=== PATIENT | male | born 1995 | race Two or more races ===

== ENCOUNTER 2019-02-09 03:50 | Emergency (ER) | payer MEDICAID ==
[~2019-02-09] VITALS: Ht 165.1 cm; Wt 54.4 kg
[2019-02-09 04:09] VITALS: BP 135/89
== END 2019-02-09 04:55 | disposition left against medical advice (07) ==
LOC: ER 03:58
DX: S01.412A Laceration without foreign body of left cheek and temporomandibular area, initial encounter (principal); Z53.21 Procedure and treatment not carried out due to patient leaving prior to being seen by health care provider; X58.XXXA Exposure to other specified factors, initial encounter; Y93.89 Activity, other specified; Y92.89 Other specified places as the place of occurrence of the external cause; Y99.8 Other external cause status

== ENCOUNTER 2022-11-06 02:34 | Inpatient (IN) | payer MEDICAID ==
[2022-11-06] VITALS (17 sets, daily range): BP systolic 75–169; BP diastolic 40–115
[~2022-11-06] VITALS: Ht 165.1 cm; Wt 98.2 kg
[2022-11-06] MEDS: MEROPENEM 2 GM in SODIUM CHL 0.9% 250 ML IV SCH ×2 (00:05→20:05)
[2022-11-06 03:28] LABS: Hematocrit 16.3 % (41.0-53.0); Mean Corpuscular Hgb Conc. 30.6 g/dL (32.0-36.0); Mean Corpuscular Volume 78.4 fL (80.0-100.0); Red Blood Cells 2.08 10^6/uL (4.5-5.90); Red Cell Distribution Width 14.8 % (11.8-14.3)
[2022-11-06] MEDS ORDERED: IPRATROPIUM BROM 0.5 MG/2.5ML INH SOL NEB ONE (03:30)
[2022-11-06] MEDS ORDERED: ALBUTEROL SULF 2.5 MG/0.5ML(0.5%) NEB SOLN NEB ONE (03:30)
[2022-11-06] MEDS ORDERED: methylPREDNISolone SOD SUCC 125 MG/2 ML VL IV ONE (03:30)
[2022-11-06 03:42] LABS: Albumin 3.6 g/dL (3.4-5.0); BUN/Creatinine Ratio 15.5; Calcium 8.4 mg/dL (8.5-10.1); Potassium 4.1 mmol/L (3.5-5.1)
[2022-11-06 03:45] LABS: Bilirubin, Total 0.5 mg/dL (0.2-1.0); Total Protein 6.3 g/dL (6.4-8.2)
[2022-11-06 03:47] LABS: White Blood Cell 74.6 10^3/uL (4.4-10.8)
[2022-11-06 03:48] LABS: Basophils % (manual) 0 (0.0-2.0); Blast Cells 0; Eosinophils % (manual) 0 (0-7); Metamyelocytes % 0; Promyelocytes % 0
[2022-11-06] MEDS ORDERED: ACETAMINOPHEN IV 100 ML IV ONE (04:13)
[2022-11-06] MEDS ORDERED: ACETAMINOPHEN IV 1000 MG/100ML (10MG/ML) IV ONE (04:15)
[2022-11-06] MEDS ORDERED: PIPERACILLIN-TAZOB 3.375GM 100 ML IV ONE (04:15)
[2022-11-06] MEDS ORDERED: SODIUM CHLORIDE 0.9% 1,000 ML IV ONE ×2 (04:15→06:00)
[2022-11-06] MEDS ORDERED: VANCOMYCIN 1GM/250ML 250 ML IV ONE (04:15)
[2022-11-06] MEDS ORDERED: ETOMIDATE (2MG/ML) 20ML VIAL IV ONE (04:18)
[2022-11-06] MEDS ORDERED: PROPOFOL 100 ML IV ONE (04:19)
[2022-11-06] MEDS ORDERED: ROCURONIUM 10MG/ML 10ML VIAL IV ONE ×3 (04:19→06:45)
[2022-11-06] MEDS ORDERED: MIDAZOLAM DRIP 50 mg/50mL 50 ML IV ONE (04:19)
[2022-11-06] MEDS ORDERED: MIDAZOLAM HCL 5 MG/ML-1ML VIAL ONE (04:20)
[2022-11-06] MEDS: MIDAZOLAM DRIP 50 mg/50mL 50 ML IV SCH ×4 (04:40→15:52)
[2022-11-06] MEDS: PROPOFOL 100 ML IV SCH ×2 (04:40→08:26)
[2022-11-06] MEDS ORDERED: MIDAZOLAM HCL 5 MG/ML-1ML VIAL IV ONE (04:45)
[2022-11-06 04:58] LABS: Lactic Acid w/Reflex 2.4 mmol/L (0.4-2.0)
[2022-11-06] MEDS ORDERED: LORazepam 0.5 MG TAB PO PRN (05:30)
[2022-11-06] MEDS ORDERED: ONDANSETRON HCL 4 MG/2 ML VIAL IV PRN (05:30)
[2022-11-06] MEDS ORDERED: MORPHINE SULFATE INJ 2 MG/ml SYRG IV PRN (05:30)
[2022-11-06] MEDS ORDERED: MORPHINE SULFATE 4 MG/ML SYR/VIAL IV PRN (05:30)
[2022-11-06] MEDS ORDERED: VANCOMYCIN PER PHARMACY 0 MG IV SCH (05:30)
[2022-11-06] MEDS ORDERED: NITROGLYCERIN 0.4 MG SL TAB SL PRN (05:30)
[2022-11-06] MEDS ORDERED: MAALOX PLUS or MAALOX 30 ML PO ONE (05:30)
[2022-11-06] MEDS ORDERED: ACETAMINOPHEN 325 MG TAB PO PRN (05:30)
[2022-11-06 05:33] LABS: Lymphocytes % (manual) 83 (10.0-50.0); Monocytes % (manual) 2 (0-12); Reactive Lymphocytes 4
[2022-11-06 06:11] LABS: Band Neutrophils % (manual) 2; Myelocytes % 2
[2022-11-06] MEDS ORDERED: fentaNYL Drip 2500mCg/250mlNS 250 ML IV ONE (06:25)
[2022-11-06] MEDS: SODIUM CHLORIDE 0.9% 1,000 ML IV SCH ×2 (06:30→19:45)
[2022-11-06] MEDS: fentaNYL Drip 2500mCg/250mlNS 250 ML IV SCH (06:30)
[2022-11-06] MEDS: PIPERACILLIN-TAZOB 3.375GM 100 ML IV SCH ×2 (06:45→15:03)
[2022-11-06 07:00] LABS: Hematocrit 16.2 % (41.0-53.0); Mean Corpuscular Hemoglobin 24.4 pg (28.0-32.0); Mean Corpuscular Hgb Conc. 29.7 g/dL (32.0-36.0); Mean Corpuscular Volume 82.2 fL (80.0-100.0); Red Blood Cells 1.97 10^6/uL (4.5-5.90); Red Cell Distribution Width 14.9 % (11.8-14.3)
[2022-11-06 07:06] LABS: White Blood Cell 78.9 10^3/uL (4.4-10.8)
[2022-11-06 07:07] LABS: Hemoglobin 4.8 g/dL (13.5-17.5)
[2022-11-06 07:09] LABS: Basophils % (manual) 0 (0.0-2.0); Blast Cells 0; Eosinophils % (manual) 0 (0-7); Metamyelocytes % 0; Myelocytes % 0; Promyelocytes % 0
[2022-11-06 09:49] LABS: Band Neutrophils % (manual) 2; Lymphocytes % (manual) 86 (10.0-50.0); Monocytes % (manual) 1 (0-12); Reactive Lymphocytes 2
[2022-11-06] MEDS ORDERED: LISINOPRIL 5 MG TAB PO SCH (10:00)
[2022-11-06] MEDS: METOPROLOL TARTRATE 25 MG TAB PO SCH ×2 (10:39→22:00)
[2022-11-06] MEDS: CLOPIDOGREL BISULFATE 75 MG TAB PO SCH (10:46)
[2022-11-06] MEDS: ASPirin 81 mg TAB PO SCH (10:46)
[2022-11-06] MEDS: ENOXAPARIN SOD 100 MG/1 ML SYRINGE SC SCH ×2 (10:47→22:19)
[2022-11-06] MEDS ORDERED: PHENYLEPHRINE IV 250 ML IV ONE (11:37)
[2022-11-06] MEDS: PHENYLEPHRINE IV 250 ML IV SCH ×2 (11:38→14:41)
[2022-11-06] MEDS: VANCOMYCIN 1GM/250ML 250 ML IV SCH ×2 (13:39→23:26)
[2022-11-06 15:54] LABS: Urine Bacteria NONE SEEN /hpf (None Seen); Urine Blood 3+ /uL (Negative); Urine Specific Gravity 1.048 (1.001-1.035); Urine WBC 11 /hpf (0 - 3)
[2022-11-06] MEDS: PHENYLEPHRINE INJ 40 MG in SODIUM CHL 0.9% 246 ML IV SCH (16:18)
[2022-11-06] MEDS: NOREPINEPHRINE 8 MG/250ML KIT 250 ML IV SCH (16:48)
[2022-11-06] MEDS ORDERED: FUROSEMIDE 40 MG/4 ML VIAL IV ONE (18:15)
[2022-11-06 21:43] LABS: Albumin 3.4 g/dL (3.4-5.0); BUN/Creatinine Ratio 14.1; Calcium 6.7 mg/dL (8.5-10.1)
[2022-11-06 21:46] LABS: Bilirubin, Total 0.9 mg/dL (0.2-1.0); Total Protein 6.7 g/dL (6.4-8.2)
[2022-11-06] MEDS: ATORVASTATIN 20 MG TAB PO SCH (22:18)
[2022-11-06 22:28] LABS: Potassium 6.3 mmol/L (3.5-5.1)
[2022-11-06] MEDS ORDERED: InsuLIN REG 1unit/0.01ml Soln (100units/ml) IV ONE (22:45)
[2022-11-06] MEDS ORDERED: CALCIUM GLUC 1,000mg/50ml-NS 50 ML IV ONE (22:45)
[2022-11-06] MEDS ORDERED: FUROSEMIDE 20 MG/2 ML VIAL IV ONE (22:45)
[2022-11-06] MEDS ORDERED: SODIUM ZIRCONIUM CYCL 10 GM PAK PO ONE (22:45)
[2022-11-06] MEDS ORDERED: SODIUM BICARBONATE 8.4 % INJ 50ML VIAL IV ONE (22:45)
[2022-11-06] MEDS ORDERED: DEXTROSE (50%) 50ML SYRG IV ONE (22:45)
[2022-11-07] VITALS (13 sets, daily range): BP systolic 102–138; BP diastolic 58–92
[2022-11-07 01:45] LABS: Hematocrit 24.3 % (41.0-53.0); Hemoglobin 8.6 g/dL (13.5-17.5); Mean Corpuscular Hgb Conc. 35.4 g/dL (32.0-36.0); Mean Corpuscular Volume 79.1 fL (80.0-100.0); Red Blood Cells 3.07 10^6/uL (4.5-5.90); Red Cell Distribution Width 17.2 % (11.8-14.3)
[2022-11-07 01:50] LABS: White Blood Cell 41.9 10^3/uL (4.4-10.8)
[2022-11-07 01:51] LABS: Basophils % (manual) 0 (0.0-2.0); Eosinophils % (manual) 0 (0-7); Metamyelocytes % 0; Myelocytes % 0; Promyelocytes % 0
[2022-11-07 05:27] LABS: Band Neutrophils % (manual) 2; Lymphocytes % (manual) 78 (10.0-50.0); Monocytes % (manual) 1 (0-12)
[2022-11-07 05:28] LABS: Blast Cells 6; Reactive Lymphocytes 2
[2022-11-07] MEDS: MEROPENEM 2 GM in SODIUM CHL 0.9% 250 ML IV SCH ×3 (06:05→23:39)
[2022-11-07] MEDS: fentaNYL Drip 2500mCg/250mlNS 250 ML IV SCH (06:30)
[2022-11-07] MEDS: PHENYLEPHRINE INJ 40 MG in SODIUM CHL 0.9% 246 ML IV SCH ×2 (07:10→23:50)
[2022-11-07] MEDS: SODIUM CHLORIDE 0.9% 1,000 ML IV SCH ×2 (08:10→21:55)
[2022-11-07] MEDS: CLOPIDOGREL BISULFATE 75 MG TAB PO SCH (10:00)
[2022-11-07] MEDS: METOPROLOL TARTRATE 25 MG TAB PO SCH ×2 (10:00→23:13)
[2022-11-07] MEDS: ASPirin 81 mg TAB PO SCH (10:00)
[2022-11-07] MEDS: VANCOMYCIN 1GM/250ML 250 ML IV SCH (11:06)
[2022-11-07] MEDS: ENOXAPARIN SOD 100 MG/1 ML SYRINGE SC SCH ×2 (12:08→23:09)
[2022-11-07 13:47] LABS: Potassium 4.3 mmol/L (3.5-5.1)
[2022-11-07 13:52] LABS: BUN/Creatinine Ratio 17.2; Bilirubin, Total 0.6 mg/dL (0.2-1.0); Total Protein 5.5 g/dL (6.4-8.2)
[2022-11-07 14:20] LABS: Hematocrit 20.5 % (41.0-53.0); Mean Corpuscular Hemoglobin 27.9 pg (28.0-32.0)
[2022-11-07 14:21] LABS: Basophils # (auto) 0.1 10 ^3/uL (0-0.2); Basophils % (auto) 0.4 % (0.0-2.0); Eosinophils # (auto) 0 10 ^3/uL (0-0.8); Eosinophils % (auto) 0.1 % (0.0-7.0); Lymphocytes # (auto) 21.3 10 ^3/uL (0.4-5.4); Mean Corpuscular Hgb Conc. 34.3 g/dL (32.0-36.0); Mean Corpuscular Volume 81.4 fL (80.0-100.0); Monocytes # (auto) 0.1 10 ^3/uL (0-1.3); Monocytes % (auto) 0.4 % (0.0-12.0); Neutrophils # (auto) 5.2 10 ^3/uL (1.6-8.6); Neutrophils % (auto) 19.5 % (37.0-80.0); Nucleated Red Blood Cells % 0.5 %; Red Blood Cells 2.52 10^6/uL (4.5-5.90); Red Cell Distribution Width 17.3 % (11.8-14.3); White Blood Cell 26.8 10^3/uL (4.4-10.8)
[2022-11-07 14:22] LABS: Lymphocytes % (auto) 79.6 % (10.0-50.0)
[2022-11-07] MEDS ORDERED: FUROSEMIDE 40 MG/4 ML VIAL IV ONE (15:00)
[2022-11-07] MEDS: NOREPINEPHRINE 8 MG/250ML KIT 250 ML IV SCH (16:07)
[2022-11-07 18:45] LABS: Lactic Acid w/Reflex 2.4 mmol/L (0.4-2.0)
[2022-11-07] MEDS: ATORVASTATIN 20 MG TAB PO SCH (23:11)
[2022-11-08] VITALS (17 sets, daily range): BP systolic 103–128; BP diastolic 59–91
[2022-11-08] MEDS: MIDAZOLAM DRIP 50 mg/50mL 50 ML IV SCH ×5 (04:45→18:21)
[2022-11-08] MEDS: PROPOFOL 100 ML IV SCH ×4 (04:45→16:55)
[2022-11-08] MEDS ORDERED: PHENYLEPHRINE IV 250 ML IV ONE (06:03)
[2022-11-08] MEDS ORDERED: PHENYLEPHRINE HCL 10 MG/ML VL ONE (06:06)
[2022-11-08] MEDS: fentaNYL Drip 2500mCg/250mlNS 250 ML IV SCH ×2 (06:30→09:39)
[2022-11-08 07:01] LABS: Calcium 7.1 mg/dL (8.5-10.1)
[2022-11-08 07:51] LABS: Mean Corpuscular Volume 81.8 fL (80.0-100.0); Red Cell Distribution Width 17.8 % (11.8-14.3)
[2022-11-08 07:53] LABS: Hematocrit 20.2 % (41.0-53.0); Hemoglobin 7.1 g/dL (13.5-17.5); Mean Corpuscular Hemoglobin 28.5 pg (28.0-32.0); Mean Corpuscular Hgb Conc. 34.9 g/dL (32.0-36.0); Red Blood Cells 2.47 10^6/uL (4.5-5.90)
[2022-11-08 07:58] LABS: White Blood Cell 43.8 10^3/uL (4.4-10.8)
[2022-11-08 08:00] LABS: Basophils % (manual) 0 (0.0-2.0); Eosinophils % (manual) 0 (0-7); Metamyelocytes % 0; Myelocytes % 0; Promyelocytes % 0; Reactive Lymphocytes 0
[2022-11-08] MEDS: MEROPENEM 2 GM in SODIUM CHL 0.9% 250 ML IV SCH ×3 (08:22→22:50)
[2022-11-08 09:33] LABS: Band Neutrophils % (manual) 15; Lymphocytes % (manual) 67 (10.0-50.0)
[2022-11-08 09:34] LABS: Blast Cells 3; Monocytes % (manual) 1 (0-12)
[2022-11-08 09:57] LABS: INR 1.05 (0.9-1.15); Partial Thromboplastin Time 35.7 sec (24.6-33.4)
[2022-11-08] MEDS: CLOPIDOGREL BISULFATE 75 MG TAB PO SCH (10:00)
[2022-11-08] MEDS: ASPirin 81 mg TAB PO SCH (10:00)
[2022-11-08] MEDS: ENOXAPARIN SOD 100 MG/1 ML SYRINGE SC SCH (10:00)
[2022-11-08] MEDS: METOPROLOL TARTRATE 25 MG TAB PO SCH ×2 (10:00→22:00)
[2022-11-08] MEDS: AZITHROMYCIN 500MG/ 250ML 250 ML IV SCH (12:17)
[2022-11-08] MEDS: SODIUM CHLORIDE 0.9% 1,000 ML IV SCH (13:11)
[2022-11-08] MEDS ORDERED: VANCOMYCIN 1GM/250ML 250 ML IV ONE (15:45)
[2022-11-08] MEDS: PHENYLEPHRINE INJ 40 MG in SODIUM CHL 0.9% 246 ML IV SCH (16:30)
[2022-11-08] MEDS ORDERED: PROPOFOL 100 ML IV ONE (16:43)
[2022-11-08] MEDS: NOREPINEPHRINE 8 MG/250ML KIT 250 ML IV SCH (16:55)
[2022-11-08 20:09] LABS: Urine Bacteria None Seen /hpf (None Seen); Urine WBC None Seen /hpf (0 - 3)
[2022-11-08 20:31] LABS: Protein, Urine 93.4 mg/dL (0.0-11.9)
[2022-11-08 20:45] LABS: Urine Blood 4+ /uL (Negative)
[2022-11-08] MEDS: ATORVASTATIN 20 MG TAB PO SCH (22:07)
[2022-11-08 22:21] LABS: Hematocrit 19.6 % (41.0-53.0); Mean Corpuscular Hgb Conc. 34.1 g/dL (32.0-36.0)
[2022-11-08 22:22] LABS: Mean Corpuscular Hemoglobin 28.1 pg (28.0-32.0); Mean Corpuscular Volume 82.4 fL (80.0-100.0); Red Blood Cells 2.38 10^6/uL (4.5-5.90); Red Cell Distribution Width 17.5 % (11.8-14.3)
[2022-11-08 22:33] LABS: Hemoglobin 6.7 g/dL (13.5-17.5); White Blood Cell 31.5 10^3/uL (4.4-10.8)
[2022-11-08 22:34] LABS: Band Neutrophils % (manual) 0; Basophils % (manual) 0 (0.0-2.0); Blast Cells 0; Eosinophils % (manual) 0 (0-7); Metamyelocytes % 0; Monocytes % (manual) 0 (0-12); Myelocytes % 0; Promyelocytes % 0
[2022-11-08 23:50] LABS: Lymphocytes % (manual) 82 (10.0-50.0); Reactive Lymphocytes 2
[2022-11-09] VITALS (18 sets, daily range): BP systolic 97–144; BP diastolic 60–103
[2022-11-09] MEDS: SODIUM CHLORIDE 0.9% 1,000 ML IV SCH ×2 (01:03→13:43)
[2022-11-09] MEDS: MEROPENEM 2 GM in SODIUM CHL 0.9% 250 ML IV SCH ×3 (05:58→22:49)
[2022-11-09 06:35] LABS: Hematocrit 22.2 % (41.0-53.0)
[2022-11-09 06:37] LABS: Hemoglobin 7.6 g/dL (13.5-17.5); Mean Corpuscular Hemoglobin 28.1 pg (28.0-32.0); Mean Corpuscular Hgb Conc. 34.4 g/dL (32.0-36.0); Mean Corpuscular Volume 81.7 fL (80.0-100.0); Red Blood Cells 2.72 10^6/uL (4.5-5.90); Red Cell Distribution Width 16.8 % (11.8-14.3)
[2022-11-09 06:43] LABS: Basophils % (manual) 0 (0.0-2.0); Eosinophils % (manual) 0 (0-7); Metamyelocytes % 0; Myelocytes % 0; Promyelocytes % 0; Reactive Lymphocytes 0
[2022-11-09 06:48] LABS: Calcium 7.3 mg/dL (8.5-10.1); Potassium 4.1 mmol/L (3.5-5.1)
[2022-11-09 06:51] LABS: BUN/Creatinine Ratio 15.7
[2022-11-09] MEDS: PHENYLEPHRINE INJ 40 MG in SODIUM CHL 0.9% 246 ML IV SCH (09:10)
[2022-11-09] MEDS: FUROSEMIDE 40 MG/4 ML VIAL IV SCH (09:29)
[2022-11-09] MEDS: AZITHROMYCIN 500MG/ 250ML 250 ML IV SCH (09:30)
[2022-11-09] MEDS: METOPROLOL TARTRATE 25 MG TAB PO SCH (09:30)
[2022-11-09] MEDS: CLOPIDOGREL BISULFATE 75 MG TAB PO SCH (09:30)
[2022-11-09] MEDS: ASPirin 81 mg TAB PO SCH (09:38)
[2022-11-09] MEDS ORDERED: VANCOMYCIN 1GM/250ML 250 ML IV SCH (10:00)
[2022-11-09] MEDS ORDERED: ENOXAPARIN SOD 100 MG/1 ML SYRINGE SC SCH (10:00)
[2022-11-09 13:42] LABS: Band Neutrophils % (manual) 5; Blast Cells 17; Lymphocytes % (manual) 59 (10.0-50.0); Monocytes % (manual) 1 (0-12)
[2022-11-09] MEDS: methylPREDNISolone SOD SUCC 125 MG/2 ML VL IV SCH ×2 (14:08→22:49)
[2022-11-09] MEDS: NOREPINEPHRINE 8 MG/250ML KIT 250 ML IV SCH (15:45)
[2022-11-09] MEDS: DOPamine 1600MCG/ML D5W 250 ML IV SCH (17:52)
[2022-11-09] MEDS: D5W/SOD CHL 0.45% 1,000 ML IV SCH (20:12)
[2022-11-09] MEDS: ATORVASTATIN 20 MG TAB PO SCH (22:50)
[2022-11-10] VITALS (60 sets, daily range): BP systolic 97–131; BP diastolic 57–88
[2022-11-10] MEDS: PHENYLEPHRINE INJ 40 MG in SODIUM CHL 0.9% 246 ML IV SCH ×2 (01:50→18:30)
[2022-11-10] MEDS: PROPOFOL 100 ML IV SCH ×2 (04:45→16:42)
[2022-11-10] MEDS: MIDAZOLAM DRIP 50 mg/50mL 50 ML IV SCH ×4 (04:45→22:26)
[2022-11-10] MEDS: methylPREDNISolone SOD SUCC 125 MG/2 ML VL IV SCH ×3 (06:10→22:25)
[2022-11-10] MEDS: MEROPENEM 2 GM in SODIUM CHL 0.9% 250 ML IV SCH ×3 (06:11→22:31)
[2022-11-10] MEDS: fentaNYL Drip 2500mCg/250mlNS 250 ML IV SCH ×3 (06:30→20:18)
[2022-11-10 08:39] LABS: Basophils # (auto) 0.1 10 ^3/uL (0-0.2); Basophils % (auto) 1.1 % (0.0-2.0); Eosinophils # (auto) 0 10 ^3/uL (0-0.8); Eosinophils % (auto) 0.2 % (0.0-7.0); Hematocrit 24.6 % (41.0-53.0); Hemoglobin 8.5 g/dL (13.5-17.5); Lymphocytes # (auto) 9.2 10 ^3/uL (0.4-5.4); Lymphocytes % (auto) 68.3 % (10.0-50.0); Mean Corpuscular Hemoglobin 27.7 pg (28.0-32.0); Mean Corpuscular Hgb Conc. 34.3 g/dL (32.0-36.0); Mean Corpuscular Volume 80.8 fL (80.0-100.0); Monocytes # (auto) 0.1 10 ^3/uL (0-1.3); Monocytes % (auto) 0.4 % (0.0-12.0); Nucleated Red Blood Cells % 0.2 %; Red Blood Cells 3.05 10^6/uL (4.5-5.90); Red Cell Distribution Width 16.9 % (11.8-14.3); White Blood Cell 13.5 10^3/uL (4.4-10.8)
[2022-11-10 08:46] LABS: Calcium 8.1 mg/dL (8.5-10.1); Magnesium 2.3 mg/dL (1.6-2.6); Potassium 4.3 mmol/L (3.5-5.1)
[2022-11-10 08:49] LABS: BUN/Creatinine Ratio 18.8
[2022-11-10] MEDS: D5W/SOD CHL 0.45% 1,000 ML IV SCH ×2 (09:00→22:26)
[2022-11-10] MEDS: FUROSEMIDE 40 MG/4 ML VIAL IV SCH (12:00)
[2022-11-10] MEDS: AZITHROMYCIN 500MG/ 250ML 250 ML IV SCH (13:27)
[2022-11-10] MEDS: NOREPINEPHRINE 8 MG/250ML KIT 250 ML IV SCH (15:45)
[2022-11-10] MEDS ORDERED: LIDOCAINE 2%HCL (LOCAL ANESTH.) INJ 20ML MDV ONE (15:56)
[2022-11-10] MEDS ORDERED: IOHEXOL 350 MG/ML 100ML IJ ONE (15:56)
[2022-11-10] MEDS: DOPamine 1600MCG/ML D5W 250 ML IV SCH (16:43)
[2022-11-10] MEDS: ATORVASTATIN 20 MG TAB PO SCH (22:25)
[2022-11-11] VITALS (105 sets, daily range): BP systolic 102–138; BP diastolic 53–86
[2022-11-11] MEDS: MIDAZOLAM DRIP 50 mg/50mL 50 ML IV SCH ×5 (02:10→22:00)
[2022-11-11 04:36] LABS: Basophils # (auto) 0 10 ^3/uL (0-0.2); Eosinophils # (auto) 0 10 ^3/uL (0-0.8); Hemoglobin 8.2 g/dL (13.5-17.5); Mean Corpuscular Hemoglobin 28.2 pg (28.0-32.0); Mean Corpuscular Volume 81.2 fL (80.0-100.0); Monocytes # (auto) 0.1 10 ^3/uL (0-1.3); Monocytes % (auto) 1.6 % (0.0-12.0); Neutrophils # (auto) 4.2 10 ^3/uL (1.6-8.6); Nucleated Red Blood Cells % 0.1 %; White Blood Cell 6.5 10^3/uL (4.4-10.8)
[2022-11-11 04:38] LABS: Basophils % (auto) 0.7 % (0.0-2.0); Hematocrit 23.6 % (41.0-53.0); Lymphocytes # (auto) 2.1 10 ^3/uL (0.4-5.4); Lymphocytes % (auto) 32.5 % (10.0-50.0); Mean Corpuscular Hgb Conc. 34.7 g/dL (32.0-36.0); Neutrophils % (auto) 65.2 % (37.0-80.0); Red Cell Distribution Width 16.8 % (11.8-14.3)
[2022-11-11 04:50] LABS: BUN/Creatinine Ratio 29.4; Calcium 8.1 mg/dL (8.5-10.1); Potassium 4.6 mmol/L (3.5-5.1)
[2022-11-11 04:58] LABS: Free T4 (Free Thyroxine) 0.69 ng/dL (0.89-1.76); T3 Total 0.38 ng/mL (0.60-1.81)
[2022-11-11] MEDS: PROPOFOL 100 ML IV SCH ×2 (05:02→22:00)
[2022-11-11] MEDS: methylPREDNISolone SOD SUCC 125 MG/2 ML VL IV SCH ×3 (05:39→21:58)
[2022-11-11] MEDS: MEROPENEM 2 GM in SODIUM CHL 0.9% 250 ML IV SCH ×3 (05:40→21:58)
[2022-11-11] MEDS: fentaNYL Drip 2500mCg/250mlNS 250 ML IV SCH (08:00)
[2022-11-11] MEDS: AZITHROMYCIN 500MG/ 250ML 250 ML IV SCH (09:42)
[2022-11-11] MEDS: FUROSEMIDE 40 MG/4 ML VIAL IV SCH (09:42)
[2022-11-11] MEDS: ENOXAPARIN SOD 40 MG/0.4 ML SYRINGE SC SCH (10:03)
[2022-11-11] MEDS: PHENYLEPHRINE INJ 40 MG in SODIUM CHL 0.9% 246 ML IV SCH (11:10)
[2022-11-11] MEDS: D5W/SOD CHL 0.45% 1,000 ML IV SCH (15:40)
[2022-11-11] MEDS: NOREPINEPHRINE 8 MG/250ML KIT 250 ML IV SCH (15:45)
[2022-11-11] MEDS: DOPamine 1600MCG/ML D5W 250 ML IV SCH ×2 (17:45→21:59)
[2022-11-11] MEDS: ATORVASTATIN 20 MG TAB PO SCH (21:58)
[2022-11-12] VITALS (77 sets, daily range): BP systolic 90–155; BP diastolic 45–110
[2022-11-12] MEDS: MIDAZOLAM DRIP 50 mg/50mL 50 ML IV SCH ×2 (01:20→06:01)
[2022-11-12] MEDS: PHENYLEPHRINE INJ 40 MG in SODIUM CHL 0.9% 246 ML IV SCH (02:12)
[2022-11-12 04:47] LABS: Basophils # (auto) 0 10 ^3/uL (0-0.2); Eosinophils # (auto) 0 10 ^3/uL (0-0.8); Hemoglobin 8.3 g/dL (13.5-17.5); Lymphocytes # (auto) 0.6 10 ^3/uL (0.4-5.4); Monocytes # (auto) 0.1 10 ^3/uL (0-1.3); Monocytes % (auto) 2.1 % (0.0-12.0); Red Cell Distribution Width 16.7 % (11.8-14.3)
[2022-11-12 04:49] LABS: Basophils % (auto) 0.3 % (0.0-2.0); Hematocrit 23.4 % (41.0-53.0); Lymphocytes % (auto) 14.8 % (10.0-50.0); Mean Corpuscular Hemoglobin 28.6 pg (28.0-32.0); Mean Corpuscular Hgb Conc. 35.6 g/dL (32.0-36.0); Mean Corpuscular Volume 80.5 fL (80.0-100.0); Neutrophils # (auto) 3.4 10 ^3/uL (1.6-8.6); Neutrophils % (auto) 82.8 % (37.0-80.0); White Blood Cell 4.1 10^3/uL (4.4-10.8)
[2022-11-12 04:54] LABS: Albumin 2.7 g/dL (3.4-5.0); BUN/Creatinine Ratio 30.6; Calcium 8.1 mg/dL (8.5-10.1); Potassium 4.4 mmol/L (3.5-5.1)
[2022-11-12 04:57] LABS: Bilirubin, Total 0.8 mg/dL (0.2-1.0); Total Protein 5.8 g/dL (6.4-8.2)
[2022-11-12] MEDS: D5W/SOD CHL 0.45% 1,000 ML IV SCH ×2 (05:59→13:55)
[2022-11-12] MEDS: methylPREDNISolone SOD SUCC 125 MG/2 ML VL IV SCH ×2 (05:59→14:13)
[2022-11-12] MEDS: MEROPENEM 2 GM in SODIUM CHL 0.9% 250 ML IV SCH ×2 (06:00→14:16)
[2022-11-12] MEDS: AZITHROMYCIN 500MG/ 250ML 250 ML IV SCH (09:26)
[2022-11-12] MEDS: FUROSEMIDE 40 MG/4 ML VIAL IV SCH ×2 (09:26→10:15)
[2022-11-12] MEDS: ENOXAPARIN SOD 40 MG/0.4 ML SYRINGE SC SCH (09:26)
[2022-11-12] MEDS: NOREPINEPHRINE 8 MG/250ML KIT 250 ML IV SCH (13:37)
[2022-11-12 23:21] LABS: Amphetamine Screen, Urine NEGATIVE (NEGATIVE); Barbiturate Scree,Urine NEGATIVE (NEGATIVE); Benzodiazephine Screen, Urine POSITIVE (NEGATIVE); Cannabinoid Screen, Urine NEGATIVE (NEGATIVE); Cocaine Screen, Urine NEGATIVE (NEGATIVE); Opiate Scree,Urine NEGATIVE (NEGATIVE); Phencyclidine Screen, Urine NEGATIVE (NEGATIVE)
[2022-11-12 23:49] LABS: Alcohol, Urine < 3.0 mg/dL (0-10)
== END 2022-11-12 20:15 | disposition short-term general hospital (02) | DRG 720 ==
LOC: ER 02:34 → TELE 05:37 → ICU WEST 11-10 07:41
PROVIDERS: ADMIT Hospitalist; ATTEND Internal Medicine
PROC: 5A1955Z Respiratory Ventilation, Greater than 96 Consecutive Hours (ICD-10-PCS; principal; 2022-11-06)
PROC: 0BH17EZ Insertion of Endotracheal Airway into Trachea, Via Natural or Artificial Opening (ICD-10-PCS; 2022-11-06)
PROC: 30233N1 Transfusion of Nonautologous Red Blood Cells into Peripheral Vein, Percutaneous Approach (ICD-10-PCS; 2022-11-06)
PROC: 079T3ZX Drainage of Bone Marrow, Percutaneous Approach, Diagnostic (ICD-10-PCS; 2022-11-10)
PROC: 06H03DZ Insertion of Intraluminal Device into Inferior Vena Cava, Percutaneous Approach (ICD-10-PCS; 2022-11-10)
PROC: B5191ZA Fluoroscopy of Inferior Vena Cava using Low Osmolar Contrast, Guidance (ICD-10-PCS; 2022-11-10)
DX: A41.9 Sepsis, unspecified organism (principal); J96.01 Acute respiratory failure with hypoxia; I26.99 Other pulmonary embolism without acute cor pulmonale; R65.21 Severe sepsis with septic shock; C91.00 Acute lymphoblastic leukemia not having achieved remission; J18.9 Pneumonia, unspecified organism; I50.82 Biventricular heart failure; G93.41 Metabolic encephalopathy; I82.432 Acute embolism and thrombosis of left popliteal vein; I50.9 Heart failure, unspecified; N17.9 Acute kidney failure, unspecified; E87.5 Hyperkalemia; I42.9 Cardiomyopathy, unspecified; E11.9 Type 2 diabetes mellitus without complications; I21.A1 Myocardial infarction type 2; G93.1 Anoxic brain damage, not elsewhere classified; Z20.822 Contact with and (suspected) exposure to COVID-19; F17.210 Nicotine dependence, cigarettes, uncomplicated; E66.9 Obesity, unspecified; R74.01 Elevation of levels of liver transaminase levels; R79.89 Other specified abnormal findings of blood chemistry; R34 Anuria and oliguria; R31.0 Gross hematuria; R00.1 Bradycardia, unspecified; E78.5 Hyperlipidemia, unspecified; Z86.718 Personal history of other venous thrombosis and embolism; Z68.34 Body mass index [BMI] 34.0-34.9, adult
CPT/HCPCS: 31500; 36415; 36600; 37191; 70450; 71045; 71250; 71275; 72125; 74176; 76775; 80048; 80053; 80061; 80202; 80307; 81001; 82533; 82565; 82570; 82805; 82962; 83036; 83605; 83615; 83735; 83880; 84156; 84300; 84439; 84443; 84480; 84484; 85007; 85025; 85027; 85045; 85610; 85730; 86850; 86880; 86900; 86901; 86920; 87040; 87070; 87081; 87205; 87426; 93005; 93306; 93970; 94002; 94003; 94640; 95819; 96365; 96375; 96379; 99152; 99291; G0378; J0131; J1815; J2250; J2543; J2704; J7060